=== PATIENT | female | born 1995 | race Two or more races ===

== ENCOUNTER 2016-11-29 16:20 | Emergency (ER) | payer MEDICAID ==
[~2016-11-29] VITALS: Ht 165.1 cm; Wt 72.6 kg
[~2016-11-29 16:20] MED LIST: PREN-129 OR
[2016-11-29 16:42] VITALS: BP 128/80
[2016-11-29 17:32] LABS: Albumin 4.2 g/dL (3.4-5.0); BUN/Creatinine Ratio 17.2; Bilirubin, Total 0.5 mg/dL (0.2-1.0); Calcium 8.9 mg/dL (8.5-10.1); Potassium 3.7 mmol/L (3.5-5.1); Total Protein 8.2 g/dL (6.4-8.2)
[2016-11-29 18:23] LABS: Basophils # (auto) 0 uL; Basophils % (auto) 0.2 % (0.0-2.0); DEFINITIVE VIEW TRANSMISSION; Eosinophils # (auto) 0 uL; Eosinophils % (auto) 0.1 % (0.0-7.0); Lymphocytes # (auto) 0.9 uL; Lymphocytes % (auto) 7.3 % (10.0-50.0); Mean Corpuscular Hemoglobin 25.1 pg (28.0-32.0); Mean Corpuscular Hgb Conc. 30.8 g/dL (32.0-36.0); Mean Corpuscular Volume 81.6 fL (80.0-100.0); Mean Platelet Volume 9.1 fL (7.4-10.4); Monocytes # (auto) 0.6 uL; Monocytes % (auto) 5.4 % (0.0-12.0); Neutrophils # (auto) 10.3 uL; Platelet Count (auto) 380 10^3/uL (140-450); Red Cell Distribution Width 14.9 % (11.6-16.0); White Blood Cell 11.8 10^3/uL (4.4-10.8)
[2016-11-29 18:26] LABS: Hematocrit 42.2 % (36.0-46.0); Hemoglobin 13.1 g/dL (12.2-16.2)
[2016-11-29 19:51] LABS: Hypochromia Slight; Platelet Estimate Adequate
== END 2016-11-30 00:29 | disposition left against medical advice (07) ==
LOC: ER 16:26
DX: R10.84 Generalized abdominal pain (principal); R11.2 Nausea with vomiting, unspecified; Z53.21 Procedure and treatment not carried out due to patient leaving prior to being seen by health care provider
CPT/HCPCS: 36415; 80053; 82150; 83690; 85025; 93005